=== PATIENT | female | born 2000 | race Two or more races ===

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

== ENCOUNTER 2019-01-19 00:49 | Observation (INO) | payer MEDICAID ==
[~2019-01-19] VITALS: Ht 162.6 cm; Wt 68.0 kg
[~2019-01-19 00:49] MED LIST changes: -CLON0.5T12 PO; +CLON0.5T4 PO; -LEVE250T PO; +LEVE500T PO
[2019-01-19] MEDS ORDERED: LORazepam 2 mg/ml vial IV ONE ×3 (01:00→02:55)
[2019-01-19 01:15] LABS: BASOPHILS % (AUTO) 0.4 % (0-1); EOSINOPHILS % (AUTO) 0.2 % (0-6); HEMATOCRIT 40.2 % (35.0-45.0); HEMOGLOBIN 14.1 g/dl (12.0-16.0); LYMPHOCYTES # (AUTO) 2.2 X10'3 (1.1-4.8); LYMPHOCYTES % (AUTO) 17.6 % (21-51); MEAN CORPUSCULAR HEMOGLOBIN 30.5 PG (27.0-31.0); MEAN CORPUSCULAR HGB CONC 35.1 g/dL (33.0-36.5); MEAN CORPUSCULAR VOLUME 86.8 FL (78-98); MEAN PLATELET VOLUME 7.8 FL (7.4-10.4); MONOCYTES # (AUTO) 0.7 X10'3 (0-0.9); MONOCYTES % (AUTO) 5.3 % (2-12); NEUTROPHILS # (AUTO) 9.6 X10'3 (1.8-7.7); NEUTROPHILS % (AUTO) 76.5 % (42-75); PLATELET COUNT 319 X10'3 (140-440); RED BLOOD COUNT 4.63 X10'6 (4.20-5.60); RED CELL DISTRIBUTION WIDTH 12.6 % (11.5-14.5); WHITE BLOOD COUNT 12.6 X10'3 (4.5-11.0)
[2019-01-19 01:24] LABS: ALANINE AMINOTRANSFERASE 39 U/L (12-78); ALBUMIN 4.2 G/DL (3.4-5.0); ALKALINE PHOSPHATASE 87 IU/L (20-180); ANION GAP 15 (8-16); ASPARTATE AMINO TRANSFERASE 31 U/L (10-37); BILIRUBIN,TOTAL 0.4 MG/DL (0.1-1.0); BLOOD UREA NITROGEN 18 MG/DL (7-18); CALCIUM 9.2 MG/DL (8.5-10.1); CHLORIDE 98 MMOL/L (99-107); CREATININE 0.75 MG/DL (0.40-0.90); GLUCOSE 255 MG/DL (70-104); POTASSIUM 3.4 MMOL/L (3.5-5.1); SODIUM 135 MMOL/L (135-145); TOTAL CARBON DIOXIDE 21.9 MMOL/L (24-32); TOTAL PROTEIN 8.4 G/DL (6.4-8.2); eGFR > 90 ML/MIN
[2019-01-19 01:32] LABS: MAGNESIUM 1.5 MG/DL (1.5-2.4); TROPONIN I 0.14 NG/ML (0.0-0.05)
[2019-01-19] MEDS ORDERED: fentaNYL/PF 50MCG/1 ML 2ML syringe IV ONE (01:35)
[2019-01-19] MEDS ORDERED: fentaNYL/PF 50MCG/1 ML 2ML syringe ONE (01:38)
[2019-01-19] MEDS ORDERED: ketorolac trometh. 30mg/ml inj. IV ONE (02:00)
[2019-01-19] MEDS ORDERED: metoprolol tartrate 1mg/ml inj IV ONE ×2 (02:00→04:45)
[2019-01-19] MEDS ORDERED: ondansetron/PF 4mg/2ml inj IV ONE ×2 (04:15→08:00)
[2019-01-19] MEDS ORDERED: morphine 4 MG/ML inj SYRINge IV ONE ×3 (04:15→08:00)
[2019-01-19] MEDS ORDERED: levetiracetam inj 500 MG in normal saline 100ml IV soln 95 ML IV ONE (04:45)
[2019-01-19 04:48] LABS: D-DIMER 2.17 MG/L FEU (0-0.50)
[2019-01-19] MEDS ORDERED: Levetiracetam-NS 500mg/100ml 100 ML IV ONE (04:50)
[2019-01-19] MEDS ORDERED: iohexol 350MG/ML 100ml bottle IV ONE ×2 (04:59→05:16)
[2019-01-19] MEDS ORDERED: enoxaparin 100mg/ml syringe SUBCUT ONE (06:00)
--- NOTE | 2019-01-19 06:43 | NUR ---
SEIZURE PRECAUTIONS IN PLACE, 4MG ATIVAN IV, 500MG KEPPRA IV ALREADY GIVEN.
--- NOTE | 2019-01-19 06:46 | NUR ---
PT NOTICED SEIZING AT THIS TIME UNKNOWN DURATION, NEGATIVE TRAUMA, PT WAS IN BED AT THE TIME. WILL CONTINUE TO MONITOR
[2019-01-19 07:14] LABS: URINE AMPHETAMINE SCREEN NEGATIVE (Neg); URINE BARBITUATE SCREEN NEGATIVE (Neg); URINE BENZODIAZEPINES SCREEN NEGATIVE (Neg); URINE CANNABINOID SCREEN NEGATIVE (Neg); URINE COCAINE SCREEN NEGATIVE (Neg); URINE HCG NEGATIVE (NEG); URINE METHADONE SCREEN NEGATIVE (Neg); URINE OPIATE SCREEN POSITIVE (Neg); URINE PHENCYCLIDINE SCREEN NEGATIVE (Neg)
[2019-01-19 07:31] LABS: PARTIAL THROMBOPLASTIN TIME 28 SECONDS (22-32)
[2019-01-19] MEDS ORDERED: ADV50100 IH (07:36)
[2019-01-19] MEDS ORDERED: ASPI-1265 PO (07:36)
[2019-01-19] MEDS ORDERED: SERT25TA PO (07:36)
[2019-01-19] MEDS ORDERED: CLOP75TA35 PO (07:36)
[2019-01-19] MEDS ORDERED: ALB0.5UD IH (07:36)
[2019-01-19] MEDS ORDERED: BECL7.3A INH (07:36)
[2019-01-19] MEDS ORDERED: LISI40TA4 PO (07:36)
--- NOTE | 2019-01-19 08:45 | NUR ---
father at the bedside at this time
[2019-01-19] MEDS ORDERED: diphenhydrAMINE 25mg capsule PO PRN (09:55)
[2019-01-19] MEDS ORDERED: acetaminophen 325mg tablet PO PRN ×2 (09:55)
[2019-01-19] MEDS ORDERED: mag hydrox/Alum hydrox/simeth 30ml oral suspension PO PRN (09:55)
[2019-01-19] MEDS ORDERED: ondansetron/PF 4mg/2ml inj IV PRN (09:55)
[2019-01-19] MEDS ORDERED: morphine 2 MG/ML inj. syringe IV PRN ×2 (09:55)
[2019-01-19] MEDS ORDERED: bisacodyl 10mg suppository rectal RC PRN (09:55)
[2019-01-19] MEDS ORDERED: magnesium 2GM in 50ml NS 50 ML IV PRN (09:55)
[2019-01-19] MEDS ORDERED: potassium CL 10mEq/100ml bag 100 ML IV PRN ×2 (09:55)
[2019-01-19] MEDS ORDERED: magnesium 4gm in 100ml NS 100 ML IV PRN (09:55)
[2019-01-19] MEDS ORDERED: HYDROcodone/acetaminophen 5mg/325mg tablet PO PRN (09:55)
[2019-01-19] MEDS ORDERED: HYDROcodone/acetaminophen 10/325mg tab PO PRN (09:55)
[2019-01-19] MEDS ORDERED: potassium Cl 20 mEq SR tablet PO PRN ×2 (09:55)
[2019-01-19] MEDS ORDERED: magnesium Cl slow-release 64mg tablet PO PRN (09:55)
[2019-01-19] MEDS ORDERED: magnesium hydroxide 30ml (MOM) UD suspension PO PRN (09:55)
[2019-01-19] MEDS ORDERED: diphenhydrAMINE 50 mg/ml inj IV PRN (09:55)
[2019-01-19] MEDS ORDERED: acetaminophen 650mg rectal suppository RC PRN (09:55)
[2019-01-19] MEDS: MESSAGE TO NURSING PO NR (10:03)
--- NOTE | 2019-01-19 10:16 | NUR ---
MEDICAL RECORDS RELEASE FAXED TO [facility]
[2019-01-19 12:00] LABS: HEMOGLOBIN A1C 7.7 % (4.5-6.2)
[2019-01-19] MEDS ORDERED: dextrose ORAL solution 15 GM/59 ML bottle PO PRN ×2 (12:30)
[2019-01-19] MEDS ORDERED: MESSAGE TO PHARMACY PO ONE (12:30)
[2019-01-19] MEDS ORDERED: glucagon, human recombinant 1mg kit SUBCUT PRN (12:30)
[2019-01-19] MEDS ORDERED: dextrose 50%-water 50ml dispensing syringe IV PRN ×2 (12:30)
--- NOTE | 2019-01-19 12:33 | NUR ---
Patient in room PCU 3019. I have received report from MARCY Alvarez and had the opportunity to ask questions and assume patient care. Patient arrived on unit, no acute distress, VSS, telemetry applied, will continue to monitor.
[2019-01-19 12:34] VITALS: BP 111/70
[2019-01-19] MEDS ORDERED: albuterol 2.5 MG/3 ML nebule NEB PRN (14:05)
[2019-01-19] MEDS: insulin Lispro (HumaLOG) vial - multi-dose SQ SCH ×2 (14:26→18:43)
[2019-01-19] MEDS: sertraline 50mg tablet PO SCH (14:27)
[2019-01-19] MEDS: propranolol 10mg tablet PO SCH ×2 (14:27→20:03)
[2019-01-19 14:57] LABS: CHOL/HDL RATIO 3.3 (0.00-4.99); CHOLESTEROL 139 MG/DL (0-200); HDL CHOLESTEROL 42 MG/DL (35-60); LDL CHOLESTEROL 82 MG/DL (50-100); TRIGLYCERIDES 162 MG/DL (20-135)
[2019-01-19 15:00] VITALS: BP 111/64
[2019-01-19] MEDS: albuterol 2.5 MG/3 ML nebule NEB SCH ×2 (15:00→20:19)
--- NOTE | 2019-01-19 16:31 | NUR ---
Problems reprioritized. Patient report given, questions answered & plan of care reviewed with MARCY Dotson.
--- NOTE | 2019-01-19 16:33 | NUR ---
Patient in room PCU 3019. I have received report from Theresa Greenwood RN and had the opportunity to ask questions and assume patient care.
--- NOTE | 2019-01-19 17:05 | NUR ---
Received report from Nila SCALES RN.
--- NOTE | 2019-01-19 17:07 | NUR ---
Patient report given, questions answered & plan of care reviewed with Francesca VIDAL.
--- NOTE | 2019-01-19 17:23 | NUR ---
Patient arrived to ACCE unit 315 at this time.
--- NOTE | 2019-01-19 17:35 | NUR ---
DM/Cardiac Diet Consults: Pt admit s/p seizures and 10/10 chest pain; [address] ER per MD note. Hx congenital atrial septum defect s/p percutaneous ASD repair 01/14 at [facility] per MD note. EF 65-70%. TG 162 on admit and imaging shows severe fatty infiltration of liver. Hx DM A1C 7.7. Pt seen by RD for written/verbal DM/HH diet eds w/ RD contact information provided. Pt open to conversation but passive; does report only takes metformin at home for DM management. RD encouraged attending CDE course and f/u w/ PCP regarding meal-replacement coverage per MD approval. RD reviewed importance of lower saturated and higher mono/poly-unsaturated fats in diet as well as GLU control to prevent long-term DM/vascular complications. Pt reports father is DM so has received ed from him regularly and reports no diet concerns at this time. PO pending at this time. Will continue to monitor. Addendum: 01/19/19 at 1736 [address] Amended: Links added.
[2019-01-19 18:00] VITALS: BP 123/76
--- NOTE | 2019-01-19 18:21 | NUR ---
Problems reprioritized. Patient report given, questions answered & plan of care reviewed with Hector VIDAL.
--- NOTE | 2019-01-19 19:38 | NUR ---
PAGER ID: [phone] MESSAGE: Sailaja Alford 18 F, ACCE unit 314. hx of seizures on Keppra, Dm, and ASD repair. Had 3 seizures in route from [facility]. No PRN Seizure medication. Can you add a PRN seizure medication for her. Jamila ACCE - [id number]
[2019-01-19] MEDS ORDERED: non-formulary drug (Beclomethasone Dipropionate (Qvar 40 MCG INHALER) 2 PUFFS) INH SCH (20:00)
[2019-01-19] MEDS ORDERED: non-formulary drug (Fluticasone/Salmeterol* (Advair 100-50 Diskus*) 1 INH) IH SCH (20:00)
[2019-01-19] MEDS: levetiracetam 250mg tablet PO SCH (20:02)
[2019-01-19] MEDS ORDERED: LORazepam 2 mg/ml vial IV PRN (20:05)
[2019-01-19] MEDS: budesonide 0.5mg/2ml UD nebule IH SCH (20:19)
[2019-01-19] MEDS ORDERED: temazepam 15mg capsule PO PRN (21:00)
[2019-01-19] MEDS ORDERED: insulin glargine (Lantus) pen - multi-dose SQ SCH ×2 (21:00)
[2019-01-19 22:00] VITALS: BP 95/50
[2019-01-20 02:29] VITALS: BP 91/54
[2019-01-20] MEDS: albuterol 2.5 MG/3 ML nebule NEB SCH ×3 (02:48→15:19)
--- NOTE | 2019-01-20 02:49 | NUR ---
[id number] Dr. Watts paged r/t non radiating chest pain. MESSAGE: Sailaja Alford post ASC closure from [facility]. admitted today non radiating chest pain. pt complaints of 10/10 chest pain, non radiating 12 lead EKG completed. and EKG needs to be read/ protocol
[2019-01-20 05:01] LABS: HEMATOCRIT 40.5 % (35.0-45.0); MEAN CORPUSCULAR HEMOGLOBIN 30.4 PG (27.0-31.0); MEAN CORPUSCULAR HGB CONC 34.5 g/dL (33.0-36.5); MEAN PLATELET VOLUME 7.9 FL (7.4-10.4); PLATELET COUNT 335 X10'3 (140-440); RED CELL DISTRIBUTION WIDTH 12.6 % (11.5-14.5); WHITE BLOOD COUNT 7.2 X10'3 (4.5-11.0)
[2019-01-20 05:12] LABS: ALBUMIN 3.9 G/DL (3.4-5.0); ANION GAP 10 (8-16); BLOOD UREA NITROGEN 18 MG/DL (7-18); BUN/CREATININE RATIO 26.5 (6.6-38.0); CALCIUM 9.2 MG/DL (8.5-10.1); CHLORIDE 101 MMOL/L (99-107); CREATININE 0.68 MG/DL (0.40-0.90); GLUCOSE 142 MG/DL (70-104); POTASSIUM 3.8 MMOL/L (3.5-5.1); SODIUM 137 MMOL/L (135-145); TOTAL CARBON DIOXIDE 25.8 MMOL/L (24-32); eGFR > 90 ML/MIN
[2019-01-20 05:52] VITALS: BP 103/67
--- NOTE | 2019-01-20 06:20 | NUR ---
Patient in room MED 315. I have received report from Stacy VIDAL and had the opportunity to ask questions and assume patient care.
--- NOTE | 2019-01-20 06:22 | NUR ---
Problems reprioritized. Patient report given, questions answered & plan of care reviewed with Liliana VIDAL. Bedside report completed.
[2019-01-20] MEDS: levetiracetam 250mg tablet PO SCH (07:30)
[2019-01-20] MEDS: sertraline 50mg tablet PO SCH (07:30)
[2019-01-20] MEDS: propranolol 10mg tablet PO SCH ×2 (07:31→12:22)
[2019-01-20] MEDS: budesonide 0.5mg/2ml UD nebule IH SCH (07:56)
[2019-01-20] MEDS ORDERED: aspirin 81mg tab.chew PO SCH (08:00)
[2019-01-20] MEDS ORDERED: K and/or MAG REPLACEMENT MC SCH (08:00)
[2019-01-20] MEDS ORDERED: clopidogrel 75mg tablet PO SCH (08:00)
[2019-01-20] MEDS: insulin Lispro (HumaLOG) vial - multi-dose SQ SCH ×2 (08:47→14:03)
[2019-01-20] MEDS: MESSAGE TO NURSING PO NR (10:57)
[2019-01-20 11:00] VITALS: BP 111/63
[2019-01-20 12:23] VITALS: BP 121/76
[2019-01-20 15:00] VITALS: BP 117/67
[2019-01-20] MEDS ORDERED: PROP10TA10 PO ×2 (15:37→15:43)
--- NOTE | 2019-01-20 17:00 | NUR ---
Patient discharged, escorted out via ambulation to private family vehicle without event at this time. Belongings sent home, Tele dc'd, IV dc'd. Eager to go home. Discussed discharge instructions with patient, verbalized understanding. Has appointment set up for melter operator already in 1 month and will make appointment with PCP soon. Sending patient home with 3 doses of propranolol r/t closed pharmacy. Medication transmitted electronically to pharmacy.
== END 2019-01-20 17:00 | disposition home or self-care (01) ==
LOC: ER 00:49 → ED HOLD 09:52 → PCU 3S 12:15 → MED 3N 17:39
PROVIDERS: ADMIT Family Medicine; ATTEND Family Medicine
DX: R07.89 Other chest pain (principal); E11.9 Type 2 diabetes mellitus without complications; F90.9 Attention-deficit hyperactivity disorder, unspecified type; G40.909 Epilepsy, unspecified, not intractable, without status epilepticus; F41.9 Anxiety disorder, unspecified; Q21.1 Atrial septal defect; J45.909 Unspecified asthma, uncomplicated; E66.9 Obesity, unspecified; I31.9 Disease of pericardium, unspecified; E87.6 Hypokalemia; K76.0 Fatty (change of) liver, not elsewhere classified; Z87.74 Personal history of (corrected) congenital malformations of heart and circulatory system; Z79.02 Long term (current) use of antithrombotics/antiplatelets; Z79.4 Long term (current) use of insulin; Z79.899 Other long term (current) drug therapy; Z88.8 Allergy status to other drugs, medicaments and biological substances
CPT/HCPCS: 36415; 71045; 71275; 80048; 80053; 80061; 80305; 81025; 82948; 83036; 83735; 83880; 84443; 84484; 85025; 85027; 85379; 85610; 85651; 85730; 87081; 93005; 93308; 94640; 94760; 96365; 96372; 96375; 96376; 99284; G0378; J1815; J1885; J1953; J2060; J2270; J2405; J3010; Q9967; J1650; J3490; J7626

== ENCOUNTER 2021-02-03 16:47 | Emergency (ER) | payer MEDICAID ==
[~2021-02-03] VITALS: Ht 162.6 cm; Wt 82.7 kg
[~2021-02-03 16:47] MED LIST changes: +ADV50100 IH; +ALB0.5UD IH; +ASPI-1265 PO; +BECL7.3A INH; -CLON0.5T4 PO; +CLOP75TA34 PO; -LEVO1TAB8 PO; -PRAZ1CAP5 PO; +SERT25TA PO; -SERT25TA5 PO
[2021-02-03] MEDS ORDERED: cyclobenzaprine 10mg tablet PO ONE (18:55)
[2021-02-03] MEDS ORDERED: ketorolac trometh. 30mg/ml inj. IM ONE (18:55)
[2021-02-03] MEDS ORDERED: IBUP-1984 PO (19:06)
[2021-02-03] MEDS ORDERED: CYCL-1 PO (19:06)
[2021-02-03 19:47] VITALS: BP 121/78
== END 2021-02-03 19:48 | disposition home or self-care (01) ==
LOC: ER 16:48
DX: M54.2 Cervicalgia (principal); J45.909 Unspecified asthma, uncomplicated; E11.9 Type 2 diabetes mellitus without complications; F41.9 Anxiety disorder, unspecified; Z88.8 Allergy status to other drugs, medicaments and biological substances; V87.7XXA Person injured in collision between other specified motor vehicles (traffic), initial encounter; Y93.89 Activity, other specified; Y92.89 Other specified places as the place of occurrence of the external cause; Y99.8 Other external cause status
CPT/HCPCS: 70450; 72125; 96372; 99285; J1885

== ENCOUNTER 2023-06-15 18:51 | Emergency (ER) | payer MEDICAID ==
[~2023-06-15] VITALS: Ht 162.6 cm; Wt 88.4 kg
[~2023-06-15 18:51] MED LIST changes: +CYCL-1 PO
[2023-06-15 18:55] VITALS: TEMP 98.6
[2023-06-15 19:23] LABS: BASOPHILS % (AUTO) 0.5 % (0-1); EOSINOPHILS # (AUTO) 0.1 X10'3 (0-0.9); EOSINOPHILS % (AUTO) 1.4 % (0-6); HEMOGLOBIN 15.9 g/dl (12.0-16.0); LYMPHOCYTES # (AUTO) 2.1 X10'3 (1.1-4.8); LYMPHOCYTES % (AUTO) 26.3 % (21-51); MEAN CORPUSCULAR HEMOGLOBIN 30.2 PG (27.0-31.0); MEAN CORPUSCULAR HGB CONC 33.8 g/dL (33.0-36.5); MEAN CORPUSCULAR VOLUME 89.3 FL (78-98); MEAN PLATELET VOLUME 7.3 FL (7.4-10.4); MONOCYTES # (AUTO) 0.5 X10'3 (0-0.9); MONOCYTES % (AUTO) 5.9 % (2-12); NEUTROPHILS # (AUTO) 5.3 X10'3 (1.8-7.7); NEUTROPHILS % (AUTO) 65.9 % (42-75); PLATELET COUNT 298 X10'3 (140-440); RED BLOOD COUNT 5.26 X10'6 (4.20-5.60); RED CELL DISTRIBUTION WIDTH 14.3 % (11.5-14.5)
[2023-06-15 19:39] LABS: ANION GAP 10 (8-16); BLOOD UREA NITROGEN 16 MG/DL (7-18); CHLORIDE 103 MMOL/L (99-107); CREATINE KINASE 569 U/L (26-192); CREATININE 0.94 MG/DL (0.40-0.90); GLUCOSE 198 MG/DL (70-104); POTASSIUM 3.7 MMOL/L (3.5-5.1); SODIUM 142 MMOL/L (135-145); eCRCL 80 ML/MIN; eGFR 73 ML/MIN
[2023-06-15 20:54] VITALS: BP 140/88; PULSE 107; RESP 16; O2SAT 99
== END 2023-06-15 21:07 | disposition home or self-care (01) ==
LOC: ER 18:53
DX: G40.909 Epilepsy, unspecified, not intractable, without status epilepticus (principal); J45.909 Unspecified asthma, uncomplicated; E11.9 Type 2 diabetes mellitus without complications; F41.9 Anxiety disorder, unspecified; Z88.8 Allergy status to other drugs, medicaments and biological substances; Z79.899 Other long term (current) drug therapy
CPT/HCPCS: 36415; 71045; 80048; 82140; 82550; 82948; 85025; 99284; J7030

== ENCOUNTER 2024-09-12 17:54 | Emergency (ER) | payer MEDICAID ==
[~2024-09-12] VITALS: Ht 162.6 cm; Wt 82.9 kg
[~2024-09-12 17:54] MED LIST changes: +METH36TA14 PO; -METH36TA22 PO
[2024-09-12 18:01] VITALS: BP 169/105; PULSE 101; RESP 18; TEMP 98.1; O2SAT 99
--- NOTE | 2024-09-12 18:34 | RADIOLOGY REPORT ---
CLINICAL INDICATION: KNEE PAIN right TECHNIQUE: 3 radiographic views of the right knee were obtained. Comparison: None FINDINGS/IMPRESSION: There is no evidence of acute fracture or dislocation. The visualized joint space is well maintained. The alignment is anatomical. There is no radiopaque foreign body. Small suprapatellar effusion.
[2024-09-12] MEDS ORDERED: SULF1TAB49 PO (20:10)
--- NOTE | 2024-09-12 20:14 | Physician Documentation ---
History of Present Illness ~ Chief Complaint: Knee Pain Stated Complaint: SWELLING Time Seen by MD: 18:19 [facility] Patient is seen today with complaints of pain of his right patella with warmth and redness and significant tenderness to palpation of the long with associated swelling over his right kneecap. Patient denies any fevers currently. He denies any chest pain or shortness of breath or abdominal pain or nausea, vomiting, diarrhea. Patient has no other concern or complaint at this time. Tetanus witin 5 years: No Medication Reconciliation Allergies: Coded Allergies: fluoxetine (Verified Adverse Reaction, Unknown, SUICIDAL, 01/19/19) Scheduled Aspirin (Aspirin), 1 TAB.CHEW PO DAILY, (Reported) Beclomethasone Dipropionate (Qvar 40 MCG INHALER), 2 PUFFS INH BID, (Reported) Clopidogrel Bisulfate (Clopidogrel), 1 TABLET PO DAILY, (Reported) Cyclobenzaprine* (Cyclobenzaprine*), 1 TAB PO Q8H Fluticasone/Salmeterol* (Advair 100-50 Diskus*), 1 INH IH BID, (Reported) Insulin Glargine,Hum.rec.anlog* (Lantus*), 8 UNITS SQ HS, (Reported) Levetiracetam (Levetiracetam), 1,000 MG PO BID, (Reported) Metformin Hcl* (Glucophage ER*), 1 TAB PO BID, (Reported) Methylphenidate Hcl (Methylphenidate Hcl), 36 MG PO DAILY, (Reported) Sertraline Hcl* (Zoloft*), 100 MG PO DAILY, (Reported) Scheduled PRN Albuterol Sulfate Nebs* (Proventil Nebs*), 2.5 MG IH Q4H PRN for SOB or wheezing, (Reported) Miscellaneous Medications Insulin Lispro (Humalog), 1 UNITS SQ, (Reported) Past Medical History Past Medical History: Seizures, Asthma, Diabetes, Anxiety Past Surgical History: other Patient History: Patient reports no known family medical history. Alcohol Use: None Drug Use: none Lives with: Family Lives In: Home Occupation: employed, student Review of Systems Constitutional: Denies: chills, fever, weakness Eyes: Denies: pain, blurred vision ENT: Denies: ear pain, nose pain, throat pain, mouth pain Respiratory: Denies: cough, shortness of breath Cardiovascular: Denies: chest pain, palpitations Gastrointestinal: Denies: abdominal pain, nausea, vomiting Genitourinary: Denies: burning, dysuria Male Genitalia: Denies: penile discharge, testicular pain Neurological: Denies: headache, dizziness Musculoskeletal: Denies: pain, swelling Integumentary: Denies: rash, lesions Allergic/Immunologic: Denies: hives, itching Hematologic/Lymphatic: Denies: no symptoms reported Psychiatric: Denies: depression, anxiety Physical Exam Vital Signs: Temperature: 98.1, Source: Temporal, Heart Rate: 101, Respiratory Rate: 18, BP: 169/105, Pulse Oximetry: 99, Weight: 82.900 Oxygen Flow Rate: 0 Physical Exam General: Awake and Alert, no acute distress. HEENT: Conjunctiva pink, Sclera clear, Mucus Membranes moist. Neck: Supple without masses and tenderness. Resp: Unlabored. Lungs clear to auscultation bilaterally. Heart: Regular Rate and rhythm, normal S1 and S2 without murmur, rub or gallop. Musculoskeletal: Patient on exam does have warmth and mild swelling over the right prepatellar area with erythema noted and significant tenderness to palpation. Patient has decreased range of motion of the right knee due to pain. Is otherwise neurovascularly intact distally with motor function and strength intact distally. Extremities: No cyanosis,clubbing or edema. Skin: Warm and Dry. Progress Results/Orders Results/Orders Vital Signs 09/12/24 18:01 Temp 98.1 Pulse 101 Resp 18 B/P (MAP) 169/105 Pulse Ox 99 O2 Flow Rate 0 EKG/XRAY/CT/US/VASC/MRI Bone/Soft Tissue X-Ray (Ext.) : Additional Comment X-ray of right knee interpreted by myself today shows no sign of acute fracture, bones in anatomic alignment, no osteolytic or blastic lesions. DIAGNOSTIC RADIOLOGY Patient: JULI MILLER Medical Record: [id number] 2000, Age: 24 Sex: Male Location: ER Patient Status: REG ER Service Date/Time: 09/12/241817 Ordering Physician: LANCE GONZALES MD Exam: KNEE, COMP 4 VW MIN CLINICAL INDICATION: KNEE PAIN right TECHNIQUE: 3 radiographic views of the right knee were obtained. Comparison: None FINDINGS/IMPRESSION: There is no evidence of acute fracture or dislocation. The visualized joint space is well maintained. The alignment is anatomical. There is no radiopaque foreign body. Small suprapatellar effusion. Electronically Signed by:CANDE COOPER DO Date & Time: 09/12/241831 Dictated by: CANDE COOPER DO Dictation date and time: 09/12/241831 Primary Care Provider: NO PRIMARY CARE PROVIDER cc: LANCE GONZALES MD ~ Medical Decision Making Findings Patient is seen today with complaints of pain of his right patella with warmth and redness and significant tenderness to palpation of the long with associated swelling over his right kneecap. Patient denies any fevers currently. He denies any chest pain or shortness of breath or abdominal pain or nausea, vomiting, diarrhea. Patient has no other concern or complaint at this time. Patient did have x-ray of right knee that showed no sign of acute fracture and b ones in anatomic alignment. Patient was started on Bactrim DS by mouth in the ED tonight and prescription of Bactrim sent to patient's pharmacy to be taken as indicated and prescribed. Patient will follow up with primary care in 1-3 days if no better as needed sooner. Return to ED with any worsening, concerning or changing symptoms. Departure Disposition: 01 HOME / SELF CARE / HOMELESS Impression: Primary Impression: Patellar bursitis of right knee Condition: Stable Discharge Instructions: Bursitis, [id number] Additional Instructions: Patient did have x-ray of right knee that showed no sign of acute fracture and bones in anatomic alignment. Patient was started on Bactrim DS by mouth in the ED tonight and prescription of Bactrim sent to patient's pharmacy to be taken as indicated and prescribed. Patient will follow up with primary care in 1-3 days if no better as needed sooner. Return to ED with any worsening, concerning or changing symptoms. Referrals: NO PRIMARY CARE PROVIDER (PCP) Prescriptions Sulfamethoxazole/Trimethoprim (Bactrim Ds Tablet) 800 Mg-160 Mg Tablet 1 TAB PO Q12H for 10 Days, #20 TAB Prov: KARLA JOSEPH 09/12/24 Signature Scribe Signature: No scribe Attestation: No scribe KARLA JOSEPH PAC Sep 12, 2024 20:14
[2024-09-12] MEDS: sulfamethoxazole/trimethoprim DS (800/160mg) tablet PO STA (20:28)
== END 2024-09-12 20:38 | disposition home or self-care (01) ==
LOC: ER 17:56
DX: M70.51 Other bursitis of knee, right knee (principal); J45.909 Unspecified asthma, uncomplicated; E11.9 Type 2 diabetes mellitus without complications; Z88.8 Allergy status to other drugs, medicaments and biological substances; Z79.82 Long term (current) use of aspirin; Z79.899 Other long term (current) drug therapy
CPT/HCPCS: 73564; 99283

== ENCOUNTER 2024-10-28 16:26 | Emergency (ER) | payer MEDICAID ==
[~2024-10-28] VITALS: Ht 162.6 cm; Wt 80.7 kg
[2024-10-28 16:53] VITALS: BP 144/85; PULSE 82; RESP 14; O2SAT 98
[2024-10-28] MEDS ORDERED: KEP500T PO (17:50)
--- NOTE | 2024-10-28 17:51 | Physician Documentation ---
History of Present Illness ~ Chief Complaint: See Chief Complaint Stated Complaint: SEIZURE Time Seen by MD: 17:06 OK to notify your PCP?: Yes Primary Medical Doctor: [facility] Source: patient Mode of Arrival: POV Exam Limitations: no limitations HPI 24-year-old male who is here due to a seizure that occurred at work today. Patient states that he has had seizures since he was a child. He is currently not on any medication for seizures because he states when he took Keppra, which he reports he only took for six months, he did not feel that it was effective. No trauma to tongue, loss of bowel or bladder control. No fevers, chills, headaches, vision changes. Patient denies confusion or any mental status changes. Medication Reconciliation Scheduled Aspirin (Aspirin), 1 TAB.CHEW PO DAILY, (Reported) Beclomethasone Dipropionate (Qvar 40 MCG INHALER), 2 PUFFS INH BID, (Reported) Clopidogrel Bisulfate (Clopidogrel), 1 TABLET PO DAILY, (Reported) Cyclobenzaprine* (Cyclobenzaprine*), 1 TAB PO Q8H Fluticasone/Salmeterol* (Advair 100-50 Diskus*), 1 INH IH BID, (Reported) Insulin Glargine,Hum.rec.anlog* (Lantus*), 8 UNITS SQ HS, (Reported) Levetiracetam (Levetiracetam), 1,000 MG PO BID, (Reported) Levetiracetam (Keppra), 1 TAB PO Q12H Metformin Hcl* (Glucophage ER*), 1 TAB PO BID, (Reported) Methylphenidate Hcl (Methylphenidate Hcl), 36 MG PO DAILY, (Reported) Sertraline Hcl* (Zoloft*), 100 MG PO DAILY, (Reported) Scheduled PRN Albuterol Sulfate Nebs* (Proventil Nebs*), 2.5 MG IH Q4H PRN for SOB or wheezing, (Reported) Miscellaneous Medications Insulin Lispro (Humalog), 1 UNITS SQ, (Reported) Past Medical History Past Medical History: Seizures, Asthma, Diabetes, Anxiety Past Surgical History: other Patient History: Patient reports no known family medical history. Alcohol Use: None Drug Use: none Lives with: Family Lives In: Home Occupation: employed, student Review of Systems All Other Systems at this time: Reviewed and Negative Physical Exam Vital Signs: Temperature: 98.7, Source: Temporal, Heart Rate: 82, Respiratory Rate: 14, BP: 144/85, Pulse Oximetry: 98, Weight: 80.700 Oxygen Flow Rate: 0 General Appearance General Appearance: Alert, WD/WN. NAD. HEENT: NCAT, PERRL, EOMI. no trauma to tongue. Neck: Supple, trachea midline. Cardiovascular: RRR. No m/r/g. Lungs: CTAB. Breathing unlabored Extremities: Normal inspection. No edema. Skin: Warm/dry, normal color Neurological: Alert and oriented x4, cn 2-12 intact. normal gait. Psychiatric: Affect congruent with mood. Progress Results/Orders Reviewed/noted all lab results: Yes Results/Orders Completed Orders - GARCIA CARPENTER Levetiracetam Tablet (Keppra Tablet) (10/28/24 17:15) Vital Signs 10/28/24 10/28/24 16:53 18:02 Temp 98.7 98.7 Pulse 82 Resp 14 B/P (MAP) 144/85 Pulse Ox 98 O2 Flow Rate 0 Medical Decision Making Differential Dx:Considerations: Include: Sim's Palsey, CVA, Delirium tremens, DKA, Drug overdose, Electrolyte imbalance, Encephalopathy, Hypoxemia, Hypoglycemia, Mass lesion, Respiratory failure, Subarachnoid Hemorrhage, TIA Departure Time of Disposition: 16:12 Disposition: 01 HOME / SELF CARE / HOMELESS Impression: Primary Impression: Seizure disorder Condition: Stable Discharge Instructions: Seizure, Adult Additional Instructions: f/u with pcp as you need to get started back on keppra or something equivalent. And if you do not feel that the Keppra is helping because you have breakthrough seizures than the dosage of Keppra needs to be increased rather than stopping the medication Referrals: NO PRIMARY CARE PROVIDER (PCP) Prescriptions Levetiracetam (Keppra) 500 Mg Tablet 1 TAB PO Q12H for 30 Days, #60 TAB 0 Refills Prov: GARCIA CARPENTER 10/28/24 Education Educated: Patient Educated regarding: diagnosis, treatment, need for follow up Signature Scribe Signature: x Attestation: GARCIA Salazar Oct 28, 2024 17:51
[2024-10-28 18:02] VITALS: TEMP 98.7
== END 2024-10-28 18:04 | disposition home or self-care (01) ==
LOC: ER 16:27
DX: G40.909 Epilepsy, unspecified, not intractable, without status epilepticus (principal); E11.9 Type 2 diabetes mellitus without complications; F41.9 Anxiety disorder, unspecified; J45.909 Unspecified asthma, uncomplicated
CPT/HCPCS: 99283